=== PATIENT | female | born 1960 | race Caucasian/White ===

== ENCOUNTER 2024-01-17 07:03 | Day surgery (SDC) | payer MEDICAID ==
[~2024-01-17] VITALS: Ht 172.7 cm; Wt 79.4 kg
[2024-01-17] MEDS ORDERED: MIDAZOLAM HCL 5 MG/5 ML VIAL ONE (08:02)
[2024-01-17] MEDS ORDERED: MEPERIDINE 100 MG INJ. 100 MG/ML VIAL ONE (08:02)
[2024-01-17] MEDS ORDERED: fentaNYL CITRATE/PF 100 MCG/2 ML AMP ONE (08:16)
[2024-01-17] MEDS ORDERED: DIPHENHYDRAMINE INJ 50 MG/ML VIAL ONE ×2 (08:28→09:35)
[2024-01-17] MEDS ORDERED: ONDANSETRON HCL 4 MG/2 ML VIAL ONE (09:51)
[2024-01-17 13:37] VITALS: O2SAT 97
[2024-01-17] MEDS: DIPHENHYDRAMINE INJ 50 MG/ML VIAL IVP ONE (14:07)
[2024-01-17 15:09] VITALS: BP_SYST 99; PULSE 55; RESP 12
== END 2024-01-17 10:57 | disposition home or self-care (01) ==
LOC: SDS 07:03 → SMU 07:04 → SDS 10:57
PROVIDERS: ATTEND Internal Medicine
DX: R19.7 Diarrhea, unspecified (principal); D12.3 Benign neoplasm of transverse colon; K63.89 Other specified diseases of intestine; K64.8 Other hemorrhoids; I10 Essential (primary) hypertension; F41.9 Anxiety disorder, unspecified; Z90.710 Acquired absence of both cervix and uterus; Z88.5 Allergy status to narcotic agent; Z98.890 Other specified postprocedural states; Z79.899 Other long term (current) drug therapy; Z85.038 Personal history of other malignant neoplasm of large intestine
CPT/HCPCS: 45380; 45385; 99152; 88305; 99153; G0378; J1200; J2250; J2405; J3010; J2175